=== PATIENT | female | born 1980 | race African-American/Black ===

== ENCOUNTER → 2016-06-27 | Outpatient (CLI) | payer SELFPAY ==
--- NOTE | 2016-06-27 11:21 | CT ---
CLINICAL INDICATION: Screening COMPARISON: None PROCEDURE: Gated acquisition of images through the mediastinum was performed without contrast. Data set was used for calcium scoring. FINDINGS: Total coronary calcium score is 3 LM: 0 LAD: 0 LCX: 3 RCA: 0 Extracardiac findings: No pathologically enlarged lymph nodes. The aortic arch is unremarkable in its appearance with norm al vascular configuration. No airspace disease, effusion, or pneumothorax identified. Normal-sized heart. The soft tissues and osseous structures are unremarkable. IMPRESSION: 1. Total calcium score of 3 corresponds to between the 75th to 90th percentile of females between th e ages of 35 and 39. The score is compatible with minimal identifiable plaque and less than 10% risk of coronary artery disease. Reported By:
== END ==
LOC: RAD 10:16
PROVIDERS: ATTEND Family Medicine
DX: Z13.6 Encounter for screening for cardiovascular disorders (principal)